=== PATIENT | female | born 1955 | race Caucasian/White ===

== ENCOUNTER 2019-07-10 12:25 | Outpatient (CLI) | payer MEDICARE, SELFPAY ==
--- NOTE | 2019-07-10 12:41 | XRR_ITS ---
PROCEDURE INFORMATION: Exam: XR Lumbosacral Spine, 2 or 3 Views Exam date and time: 07/10/2019 1:26 PM Age: 64 years old Clinical indication: Low back pain; Prior surgery; Additional info: Chronic low back pain TECHNIQUE: Imaging protocol: XR of the lumbosacral spine, 2 or 3 views. COMPARISON: CR Lumbar Spine Flex/Extens [id number] 11/02/2015 3:27 PM FINDINGS: Vertebrae: There are posterior fusion rods and pedicle screws at L3, L4 and L5. No evidence for hardware failure. There is postsurgical change at the L3/4 and L4/5 discs. There is disc space narrowing and osteophyte formation at L1/2 and L2/3 with vacuum disc phenomenon. There is a mild thoracolumbar spine scoliosis convex to the right. Soft tissues: Unremarkable XR/XR lumbar spine 2-3V* [id number] IMPRESSION: There are no acute concerning abnormalities. Postoperative change is identified in the lumbar spine. There is degenerative change at L1/2 and L2/3.
--- NOTE | 2019-07-10 12:42 | XRR_ITS ---
PROCEDURE INFORMATION: Exam: XR Left Hip with Pelvis when Performed Exam date and time: 07/10/2019 1:26 PM Age: 64 years old Clinical indication: Hip pain; Left hip; Additional info: Left hip pain TECHNIQUE: Imaging protocol: XR Left hip with pelvis when performed. Views: 2 or 3 views. COMPARISON: No relevant prior studies available. FINDINGS: Bones/joints: There has been a right hip replacement. No evidence for hardware failure. The left hip appears unremarkable. No significant joint space narrowing or fracture. Soft tissues: Unremarkable. XR/XR hip LT 2-3V wo/w pel* [id number] IMPRESSION: There are no acute concerning abnormalities.
--- NOTE | 2019-07-10 12:42 | XRR_ITS ---
PROCEDURE INFORMATION: Exam: XR Bilateral Sacroiliac Joints, 3 or More Views Exam date and time: 07/10/2019 1:26 PM Age: 64 years old Clinical indication: Pain; Other: Si joints, lt; Additional info: Lt sacroilitis TECHNIQUE: Imaging protocol: XR Bilateral XR of the sacroiliac joints, 3 or more views. COMPARISON: CR [facility] Hip RIGHT 2-3 views 03/11/2014 2:28 PM FINDINGS: Bones/joints: The sacroiliac joints appear intact. No acute fracture. There are posterior fusion rods and pedicle screws in the left L4 and L5 vertebral bodies and there has been a right hip replacement. Soft tissues: Normal. XR/XR sacroiliac [facility] m 3V [id number] IMPRESSION: No acute findings.
== END 2019-07-10 12:26 | disposition home or self-care (01) ==
LOC: RAD 12:29
PROVIDERS: PCP Family Medicine; Visit Provider Family Medicine
DX: M54.5 Low back pain (principal); M46.1 Sacroiliitis, not elsewhere classified; M25.552 Pain in left hip
CPT/HCPCS: 72100; 72202; 73502

== ENCOUNTER 2019-07-22 06:57 | Outpatient (CLI) | payer MEDICARE, SELFPAY ==
--- NOTE | 2019-07-22 07:05 | MR_ITS ---
WS: [id number] MRI LUMBAR SPINE NONCONTRAST HISTORY: LUMBAR RADICULOPATHY, LEFT COMPARISON: 11/02/2015 TECHNIQUE: Sagittal and axial multisequence imaging is submitted. Moderate curvature lumbar spine to the RIGHT. Prior LEFT lumbar fusion extending from L3 to L5 with i nterbody spacers at L3-4 and L4-5. Severe degenerative disc disease throughout the lumbar spine. 3 mm anterolisthesis of L3 and L4. No a cute fracture or marrow edema in the lumbar spine. There is a small amount of marrow edema in the adj acent endplates at T10 and T11 which may be reactive. Conus terminates normally at L1-2 disc level. L1-L2: Severe asymmetric disc bulging and osteophytic ridging. Moderate size LEFT paracentral disc os teophyte protrusion extends into the subarticular recess. Facet joint encroachment upon the LEFT late ral thecal sac. There is mild central stenosis with severe bilateral foraminal stenosis LEFT greater than RIGHT. No change. L2-L3: Diffuse osteophytic ridging and disc bulging. Marked ligamentum flavum hypertrophy and facet a rthritis. Complete effacement of fat in the LEFT foramen. There is mild central and RIGHT foraminal s tenosis and severe LEFT foraminal stenosis. No progression. L3-L4: Annular disc bulging and osteophytic ridging. Mild facet arthritis. Single LEFT pedicle screw. Previously described stenosis has been resolved by debridement of the facet joints and ligaments. L4-L5: Marked osteophytic ridging and annular disc bulge. Prior debridement of the facet joint and li gamentum flavum flavum. Mild encroachment upon the central thecal sac with no significant stenosis. M ild bilateral foraminal narrowing. L5-S1: Annular disc bulging with a central protrusion. There is very slight deformity upon the RIGHT lateral thecal sac and S1 nerve root. Moderate LEFT foraminal stenosis. Paravertebral soft tissues are normal. MR/MR lumbar spine wo con* [id number] IMPRESSION: 1. Prior posterior lumbar fusion with LEFT pedicle screws at L3, L4 and L5. 2. Debridement and postsurgical resolution of central stenosis at L3-4 and L4- 5. 3. Severe LEFT foraminal stenosis at L2-3 with mild central and RIGHT foramina l stenosis, unchanged. 4. Moderate LEFT paracentral disc osteophyte protrusion at L1-2 with extension into the subarticular recess. 5. Mild central and severe bilateral foraminal stenosis, greatest on the LEFT at L1-2. 6. Severe degenerative spondylitic changes and RIGHT convex scoliosis lumbar s pine.
== END 2019-07-22 06:58 | disposition home or self-care (01) ==
LOC: RADSHAW 06:59
PROVIDERS: PCP Family Medicine; Visit Provider Family Medicine
DX: M54.16 Radiculopathy, lumbar region (principal); M43.26 Fusion of spine, lumbar region; M48.061 Spinal stenosis, lumbar region without neurogenic claudication; M25.78 Osteophyte, vertebrae
CPT/HCPCS: 72148

== ENCOUNTER 2019-08-13 09:09 | Outpatient (RCR) | payer MEDICARE, SELFPAY | END 2019-08-18 23:59 | disposition home or self-care (01) | LOC: SPT 09:09 | PROVIDERS: PCP Family Medicine; Referring Provider Orthopaedic Surgery; Visit Provider Orthopaedic Surgery | DX: M17.11 Unilateral primary osteoarthritis, right knee (principal) | CPT/HCPCS: 97110; 97161 ==

== ENCOUNTER 2019-08-19 02:25 | Outpatient (RCR) | payer MEDICARE, SELFPAY | END 2019-09-18 23:59 | disposition home or self-care (01) | LOC: SPT 02:25 | PROVIDERS: PCP Family Medicine; Referring Provider Orthopaedic Surgery; Visit Provider Orthopaedic Surgery | DX: M17.11 Unilateral primary osteoarthritis, right knee (principal) | CPT/HCPCS: 97032; 97110 ==

== ENCOUNTER 2019-10-07 06:00 | Outpatient (RCR) | payer MEDICARE, SELFPAY | END 2019-10-19 23:59 | disposition home or self-care (01) | LOC: SPT 06:00 | PROVIDERS: PCP Family Medicine; Referring Provider Orthopaedic Surgery; Visit Provider Orthopaedic Surgery | DX: M54.16 Radiculopathy, lumbar region (principal) | CPT/HCPCS: 97161 ==

== ENCOUNTER 2019-10-07 09:42 | Outpatient (RCR) | payer MEDICARE, SELFPAY | END 2019-10-19 23:59 | disposition home or self-care (01) | LOC: SPT 09:42 | PROVIDERS: PCP Family Medicine; Referring Provider Family Medicine; Visit Provider Family Medicine | DX: M54.16 Radiculopathy, lumbar region (principal) | CPT/HCPCS: 97110; 99215 ==

== ENCOUNTER → 2019-10-08 13:35 | Outpatient (BNVA) | payer MEDICARE, SELFPAY | PROVIDERS: PCP Family Medicine; Referring Provider Dermatology; Visit Provider Dermatology | DX: B07.8 Other viral warts (principal); D18.01 Hemangioma of skin and subcutaneous tissue; L73.8 Other specified follicular disorders | CPT/HCPCS: 17110; 99203 ==

== ENCOUNTER → 2019-10-19 11:14 | Outpatient (BNVA) | payer MEDICARE, SELFPAY | PROVIDERS: PCP Family Medicine; Visit Provider Podiatrist Foot & Ankle Surgery | DX: M25.571 Pain in right ankle and joints of right foot (principal) | CPT/HCPCS: 73610 ==

== ENCOUNTER 2019-10-20 06:00 | Outpatient (RCR) | payer MEDICARE, SELFPAY | END 2019-11-18 23:59 | disposition home or self-care (01) | LOC: SPT 06:00 | PROVIDERS: PCP Family Medicine; Referring Provider Family Medicine; Visit Provider Family Medicine | DX: M54.16 Radiculopathy, lumbar region (principal) | CPT/HCPCS: 97110 ==

== ENCOUNTER 2019-10-21 08:00 | Outpatient (CLI) | payer MEDICARE, SELFPAY ==
--- NOTE | 2019-10-21 08:00 | MR_ITS ---
WS: [id number] MRI BRAIN WITH AND WITHOUT CONTRAST HISTORY: Multiple sclerosis. COMPARISON: 07/25/2017 TECHNIQUE: Multiplanar imaging performed through the brain with Prohance 17 ml's IV. No acute infarcts are seen. Cifuentes-white matter differentiation is well preserved. Several white matter lesions on the LEFT. The largest is ovoid with perpendicular orientation the corpus callosum measur ing 8 mm. There are additional LEFT pericallosal T2 and FLAIR signal hyperintensities which are stabl e. No new or progressing lesions. No susceptibility artifacts or prior lacunar infarcts. Ventricles and extra-axial spaces are normal. Clivus and pituitary gland are normal. Visualized posterior fossa and brainstem are also normal. Postcontrast images are negative for masses or vascular malformations. None of the demyelinating lesi ons enhance. Dural venous sinuses are normal. Paranasal sinuses: Well aerated with no significant disease. Mastoid air cells: Normal. Calvarium and scalp: Normal. MR/MR head wo/w con [id number] IMPRESSION: 1. Stable, nonenhancing LEFT pericallosal white matter lesions since 07/25/2017. No progression of demyelinating lesions or active demyelination. 2. No enhancing masses.
--- NOTE | 2019-10-21 08:00 | MR_ITS ---
WS: [id number] MRI CERVICAL SPINE with and without contrast. HISTORY: Multiple sclerosis. COMPARISON: 03/14/2009 Multiplanar, multisequence imaging performed of the cervical spine with and without contrast. Normal cervical alignment. Mild disc space narrowing and desiccation at C4-5 and C5-6. Smudgy area of increased T2 and FLAIR signal in the central cord at the C4-5 level extending over a l ength of 1.4 cm. There is no enhancement. Craniocervical junction, C1 and C2 relationship, odontoid process and soft tissues are normal. C2-C3: Normal. C3-C4: RIGHT foraminal osteophyte. C4-C5: Small bilateral foraminal osteophytes with mild narrowing of the LEFT foramen. C5-C6: Small central disc protrusion and osteophytic ridging without stenosis. C6-C7: Shallow RIGHT paracentral disc protrusion without stenosis. C7-T1: Small central disc protrusion has decreased in size since 2009. No stenosis. T2-T3: Annular disc bulging with small bilateral paracentral disc protrusions. No enhancing lesions are noted on the postcontrast sequences. No discitis or vertebral body osteomyel itis. No enhancing lesions within the cervical cord. MR/MR cervical spine wo/w [id number] IMPRESSION: 1. No active demyelination. 2. Stable demyelinating lesion in the cervical cord at C4-5. No additional les ions identified. 3. Disc protrusion at C7-T1 has significantly decreased in size.
== END 2019-10-21 08:01 | disposition home or self-care (01) ==
LOC: RADSHAW 08:02
PROVIDERS: PCP Family Medicine; Visit Provider Specialist
DX: G35 Multiple sclerosis (principal); M51.24 Other intervertebral disc displacement, thoracic region
CPT/HCPCS: 70553; 72156; A9579

== ENCOUNTER 2019-11-19 06:00 | Outpatient (RCR) | payer MEDICARE, SELFPAY | END 2019-12-19 23:59 | disposition home or self-care (01) | LOC: SPT 06:00 | PROVIDERS: PCP Family Medicine; Referring Provider Family Medicine; Visit Provider Family Medicine | DX: M54.16 Radiculopathy, lumbar region (principal) | CPT/HCPCS: 97110 ==

== ENCOUNTER → 2020-04-08 11:05 | Outpatient (BNVA) | payer MEDICARE, SELFPAY | PROVIDERS: PCP Family Medicine; Visit Provider Specialist | DX: G35 Multiple sclerosis (principal) | CPT/HCPCS: 99214 ==

== ENCOUNTER → 2020-07-19 13:17 | Outpatient (BNVA) | payer MEDICARE, SELFPAY | PROVIDERS: PCP Family Medicine; Visit Provider Podiatrist Foot & Ankle Surgery | DX: M25.571 Pain in right ankle and joints of right foot (principal); M79.673 Pain in unspecified foot; M76.821 Posterior tibial tendinitis, right leg; M21.70 Unequal limb length (acquired), unspecified site | CPT/HCPCS: 73630 ==

== ENCOUNTER → 2020-11-11 08:40 | Outpatient (BNVA) | payer MEDICARE, SELFPAY | PROVIDERS: PCP Family Medicine; Visit Provider Nurse Practitioner Family | DX: Z20.822 Contact with and (suspected) exposure to COVID-19 (principal) | CPT/HCPCS: 87426 ==

== ENCOUNTER → 2021-05-23 09:53 | Outpatient (BNVA) | payer MEDICARE, SELFPAY | PROVIDERS: PCP Family Medicine; Visit Provider Specialist | DX: G35 Multiple sclerosis (principal); G47.33 Obstructive sleep apnea (adult) (pediatric); M19.90 Unspecified osteoarthritis, unspecified site | CPT/HCPCS: 99214 ==

== ENCOUNTER → 2021-06-08 13:33 | Outpatient (BNVA) | payer MEDICARE, SELFPAY | PROVIDERS: PCP Family Medicine; Visit Provider Podiatrist Foot & Ankle Surgery | DX: M25.571 Pain in right ankle and joints of right foot (principal); M76.821 Posterior tibial tendinitis, right leg; M21.70 Unequal limb length (acquired), unspecified site | CPT/HCPCS: 99213; 99214 ==

== ENCOUNTER → 2021-06-22 10:48 | Outpatient (BNVA) | payer MEDICARE, SELFPAY | PROVIDERS: PCP Family Medicine; Visit Provider Family Medicine | DX: Z51.81 Encounter for therapeutic drug level monitoring (principal); R73.9 Hyperglycemia, unspecified; Z86.39 Personal history of other endocrine, nutritional and metabolic disease; R53.81 Other malaise; R53.83 Other fatigue | CPT/HCPCS: 80053; 83036; 84439; 84443; 85025 ==

== ENCOUNTER 2021-09-07 14:23 | Outpatient (CLI) | payer MEDICARE, SELFPAY ==
--- NOTE | 2021-09-07 | XRR_ITS ---
[facility] Final Radiology Report Call: [phone] assistance Online chat: [email or web address] Name: AFTAB CODY Age: 66Years F Date: 09/07/2021 SSN: -- : 1955 Study: XR SPINE LUMBOSACRAL 2 OR 3 VIEWS Requesting Physician: RONALD GUPTA Images: 3 Add?l Studies: Provided Clinical History: LUMBAR SPINAL STENOSIS PROCEDURE INFORMATION: Exam: XR Lumbosacral Spine Exam date and time: 09/07/2021 2:54 PM Age: 66 years old Clinical indication: Condition or disease; Stenosis, spinal; Lumbar region; Prior surgery; Additional info: Lumbar spinal stenosis TECHNIQUE: Imaging protocol: Radiologic exam of the lumbosacral spine. Views: 2 or 3 views. COMPARISON: MR lumbar spine wo con* [id number] 07/22/2019 7:34 AM FINDINGS: Bones/joints: Intact spinal fusion hardware involving the T12-L5 segment with intervertebral disc spacers. Degenerative disc disease at L5-S1. No acute fracture. Normal alignment. Partially visualized right hip arthroplasty noted. Soft tissues: Sequela of bilateral inguinal hernia repair. IMPRESSION: No acute findings. Thank you for allowing us to participate in the care of your patient. Dictated and Authenticated by: Hilton Hicks DO 09/07/2021 4:44 PM Central Time ([place] & [place]) KAYLA
--- NOTE | 2021-09-07 14:41 | XR_ITS ---
WS: [id number] XR hip RT 2-3V wo/w pel* [id number] REASON FOR EXAM: Right hip pain FINDINGS: Total right hip arthroplasty. Prosthetic components appear to be in proper position and alignment. No fracture or other bony abnormality is identified. The total right hip arthroplasty appears unchanged compared to a view of the pelvis 07/10/2019. XR/XR hip RT 2-3V wo/w pel* [id number] IMPRESSION: Stable right hip arthroplasty.
== END 2021-09-07 14:24 | disposition home or self-care (01) ==
LOC: RAD 14:28
PROVIDERS: PCP Family Medicine; Visit Provider Family Medicine
DX: M25.551 Pain in right hip (principal); M48.061 Spinal stenosis, lumbar region without neurogenic claudication; Z96.641 Presence of right artificial hip joint
CPT/HCPCS: 72100; 73502

== ENCOUNTER → 2021-10-18 13:09 | Outpatient (BNVA) | payer MEDICARE, SELFPAY | PROVIDERS: PCP Family Medicine; Visit Provider Podiatrist Foot & Ankle Surgery | DX: M76.821 Posterior tibial tendinitis, right leg (principal); M25.571 Pain in right ankle and joints of right foot | CPT/HCPCS: 99213 ==

== ENCOUNTER → 2021-10-20 10:57 | Outpatient (BNVA) | payer MEDICARE, SELFPAY | PROVIDERS: PCP Family Medicine; Visit Provider Family Medicine | DX: R30.0 Dysuria (principal) | CPT/HCPCS: 81000; 87077; 87086; 87184 ==

== ENCOUNTER 2021-11-21 13:59 | Outpatient (CLI) | payer MEDICARE, SELFPAY ==
--- NOTE | 2021-11-21 14:08 | XRR_ITS ---
PROCEDURE INFORMATION: Exam: XR Left Hip Exam date and time: 11/21/2021 2:09 PM Age: 66 years old Clinical indication: Injury or trauma; Fall; Blunt trauma (contusions or hematomas); Injury details: History--fell 2 weeks prior, injured low back and left hip, pain in left hip and lowback now; Prior surgery; Surgery type: Surgery--right hip replacement, l1-5 fused; Additional info: Left hip pain TECHNIQUE: Imaging protocol: Radiologic exam of the Left hip. Views: 2 or 3 views hip with pelvis when performed. COMPARISON: CR XR hip LT 2-3V wo/w pel* [id number] 07/10/2019 12:58 PM FINDINGS: Bones/joints: Mild chronic productive changes at the ischial and greater trochanteric regions. No acute fracture dislocation. Well preserved hip joint space on this nonweightbearing exam. Mild see tabular spurring consistent with early degenerative disease. Soft tissues: Unremarkable. Other findings: Two views submitted. XR/XR hip LT 2-3V wo/w pel* [id number] IMPRESSION: No acute findings.
--- NOTE | 2021-11-21 14:08 | XRR_ITS ---
PROCEDURE INFORMATION: Exam: XR Lumbosacral Spine Exam date and time: 11/21/2021 2:09 PM Age: 66 years old Clinical indication: Injury or trauma; Fall; Blunt trauma (contusions or hematomas); Injury details: History--fell 2 weeks prior, injured low back and left hip, pain in left hip and lowback now; Prior surgery; Surgery type: Surgery--right hip replacement, l1-5 fused; Additional info: Low back pain TECHNIQUE: Imaging protocol: Radiologic exam of the lumbosacral spine. Views: 2 or 3 views. COMPARISON: CR XR lumbar spine 2-3V* [id number] 09/07/2021 2:54 PM FINDINGS: Bones/joints: Posterior surgical fusion hardware from T12 through L5 with multilevel intervertebral disc spacers, in good alignment. Multilevel endplate osteophytes are again noted, most prominent at T9-10. Probable mild osteopenia. Facet sclerosis at L5-S1. No acute fracture or subluxation otherwise. Soft tissues: Unremarkable. Vasculature: Diffuse aortoiliac calcification. Other findings: Four views submitted. XR/XR lumbar spine 2-3V* [id number] IMPRESSION: No acute findings.
== END 2021-11-21 14:00 | disposition home or self-care (01) ==
LOC: RAD 14:02
PROVIDERS: PCP Family Medicine; Visit Provider Family Medicine
DX: M25.552 Pain in left hip (principal); M54.50 Low back pain, unspecified
CPT/HCPCS: 72100; 73502

== ENCOUNTER → 2022-03-28 13:08 | Outpatient (BNVA) | payer MEDICARE, SELFPAY | PROVIDERS: PCP Family Medicine; Visit Provider Podiatrist Foot & Ankle Surgery | DX: M25.571 Pain in right ankle and joints of right foot (principal); M76.821 Posterior tibial tendinitis, right leg | CPT/HCPCS: 99213 ==

== ENCOUNTER 2022-04-10 14:05 | Outpatient (CLI) | payer MEDICARE, SELFPAY ==
--- NOTE | 2022-04-10 | XR_ITS ---
Exam: XR lumbar spine 2-3V* [id number] Date/Time of Exam: 04/10/2022 2:23 PM Reason For Exam: FUSION OF LUMBOSACRAL SPINE, PAIN Comparison 11/21/2021. Posterior interbody fusion from T12 to L5 with pedicle screws and posterior rods. Disc spacers at L1-2, L2-3, L3-4 and L4-5. Degenerative thinning of the L5-S1 disc. The fusion remains in satisfactory alignment. Mild degenerative anterolisthesis of L4 on L5 and L3 on L4. Mild dextroscoliosis. IMPRESSION: 1. Stable-appearing posterior fusion without change or complication since the last exam. MTDD
--- NOTE | 2022-04-10 14:19 | XR_ITS ---
WS: [id number] Exam: XR lumbar spine 2-3V* [id number] Date/Time of Exam: 04/10/2022 2:23 PM Reason For Exam: FUSION OF LUMBOSACRAL SPINE, PAIN Comparison 11/21/2021. Posterior interbody fusion from T12 to L5 with pedicle screws and posterior rods. Disc spacers at L1- 2, L2-3, L3-4 and L4-5. Degenerative thinning of the L5-S1 disc. The fusion remains in satisfactory a lignment. Mild degenerative anterolisthesis of L4 on L5 and L3 on L4. Mild dextroscoliosis.
== END 2022-04-10 14:06 | disposition home or self-care (01) ==
LOC: RAD 14:09
PROVIDERS: PCP Family Medicine; Visit Provider Orthopaedic Surgery Orthopaedic Surgery of the Spine
DX: Z98.1 Arthrodesis status (principal)
CPT/HCPCS: 72100

== ENCOUNTER → 2022-04-20 11:24 | Outpatient (BNVA) | payer MEDICARE, SELFPAY | PROVIDERS: PCP Family Medicine; Visit Provider Family Medicine | DX: R07.9 Chest pain, unspecified (principal); Z51.81 Encounter for therapeutic drug level monitoring; R73.09 Other abnormal glucose; Z13.220 Encounter for screening for lipoid disorders; I10 Essential (primary) hypertension | CPT/HCPCS: 80053; 80061; 83036; 85025 ==

== ENCOUNTER → 2022-05-10 09:34 | Outpatient (BNVA) | payer MEDICARE, SELFPAY | PROVIDERS: PCP Family Medicine; Visit Provider Obstetrics & Gynecology | DX: N95.2 Postmenopausal atrophic vaginitis (principal); N95.0 Postmenopausal bleeding | CPT/HCPCS: 87624 ==

== ENCOUNTER → 2022-05-23 08:49 | Outpatient (BNVA) | payer MEDICARE, SELFPAY | PROVIDERS: PCP Family Medicine; Visit Provider Specialist | DX: G35 Multiple sclerosis (principal); D72.810 Lymphocytopenia | CPT/HCPCS: 99213 ==

== ENCOUNTER → 2022-05-24 09:05 | Outpatient (BNVA) | payer MEDICARE, SELFPAY | PROVIDERS: PCP Family Medicine; Visit Provider Podiatrist Foot & Ankle Surgery | DX: L60.8 Other nail disorders (principal); M76.821 Posterior tibial tendinitis, right leg; G35 Multiple sclerosis; L60.3 Nail dystrophy; I73.9 Peripheral vascular disease, unspecified | CPT/HCPCS: 11721 ==

== ENCOUNTER 2022-06-11 07:47 | Outpatient (CLI) | payer MEDICARE, SELFPAY ==
[2022-06-11 08:05] VITALS: BMI 42.0
--- NOTE | 2022-06-11 08:08 | NMCV_ITS ---
NM sarbjit perf SPECT r/s* [id number] Claudia Gunn Age: 67 Gender: F : 1955 Exam Date: 06/11/2022 09:22 Ordering Phys: Renan Clarke MD Technologist: AD Elkins Exam Location: [facility] Indications: CHEST PAIN STRESS TEST Please see separate stress test report in [facility] for full findings IMAGE PROTOCOL Rest/Stress 1 Lexiscan Day Radiopharmaceutical Dose (mCi) Administration Site Administered by Rest: Tc-99m 10.9 IV AD Phipps Sestamibi Stress:Tc-99m 32.4 IV AD Phipps Sestamibi Rest: 11-Jun-2022 60 Discovery 630 Stress: 11-Jun-2022 30 Discovery 630 0.4mg Lexiscan. Supine position only as patient was unable to lay prone. SPECT RESULTS Technical Quality: Good Raw Data Analysis: Breast attenuation Image Corrections: No attenuation or motion correction applied Summed Stress Score: 4 Summed Rest Score: 2 Summed Difference Score: 2 PERFUSION FINDINGS Small to moderate area of minimal to moderately decreased tracer uptake was noted in the mid and apical anterior and mid anterolateral segments. Subtle area of reversibility was noted in the apical anterior region. FUNCTIONAL RESULTS (calculated via Gated SPECT) Stress Image LV EF (%): 78 Stress EDV (mL):86 TID: 1.13 Stress ESV (mL):19 FUNCTIONAL FINDINGS: Segmental wall motion analysis revealing no gross wall motion abnormalities IMPRESSIONS 1. Myocardial perfusion imaging revealing small to moderate area of minimal to moderately decreased tracer uptake in the anterior and anterolateral regions with subtle area of reversibility suggesting myocardial scarring in the distribution of the left anterior descending artery with subtle area of ischemia. The reliability of this finding is questionable in view of some inconsistencies. 2. Normal LV ejection fraction of 78% 3. LV wall motion analysis revealing no gross wall motion abnormalities. 4. Normal LV volume. Clinical correlation is recommended Dr Rosie Spencer MD FACC (Electronically Signed) Final Date: 11 June 2022 16:53 S
--- NOTE | 2022-06-11 08:08 | ECG_ITS ---
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 Interpretive Statements NAME OF STUDY: LEXISCAN SESTAMIBI STRESS TEST INDICATION: Chest Pain RESULTS TO RONALD GUPTA MD PROCEDURE: At the baseline, the EKG revealed normal sinus rhythm with a normal ST Ts.. The baseline heart was 60 bpm with a blood pressue of 145/69 mm of Hg Lexiscan was infused over a period of 20 seconds. A total of 0.4 milligrams of Lexiscan was infused. The stress phase was continued for a total of 5 minutes. Heart rate at the end of the stress phase was 71 bpm with a blood pressure 136/61 mm of Hg. The EKG at the peak infusion revealed no significant changes. Sestamibi was injected 20 seconds after the Lexiscan infusion. Heart rate at the end of the recovery phase was 63 bpm with a blood pressure of 136/65 mm of Hg. CONCLUSION: 1. No significant EKG changes with the LexiScan infusion 2. No LexiScan induced chest pain or cardiac arrhythmia 3. Normal blood pressure and heart rate response 4. Sestamibi/sestamibi perfusion scan pending; see separate report. Electronically Signed On 06-16-2022 19:31:05 CDT by Rosie Spencer M.D. [email or web address]
[2022-06-11] MEDS: regadenoson 0.4 Mg/5 ml Syringe IVP (09:59)
[2022-06-11 10:11] VITALS: BP 136/63; PULSE 63
== END 2022-06-11 07:48 | disposition home or self-care (01) ==
PROVIDERS: PCP Family Medicine; Visit Provider Family Medicine
DX: R07.9 Chest pain, unspecified (principal)
CPT/HCPCS: 36415; 78452; 93017; 96374; A9500; J2785

== ENCOUNTER → 2022-06-19 13:24 | Outpatient (BNVA) | payer MEDICARE, SELFPAY | PROVIDERS: PCP Family Medicine; Visit Provider Obstetrics & Gynecology | DX: N95.0 Postmenopausal bleeding (principal); N95.2 Postmenopausal atrophic vaginitis | CPT/HCPCS: 76830 ==

== ENCOUNTER 2022-07-06 11:15 | Outpatient (CLI) | payer MEDICARE, SELFPAY ==
--- NOTE | 2022-07-06 11:28 | XR_ITS ---
WS: [id number] Right knee, 3 views, 07/06/2022 Clinical Data: right knee pain and bruising after a fall Comparison: Right knee, 09/17/2011 Findings: The right knee arthroplasty components are in good position. No periprosthetic fractures or loosening is seen. The soft tissues are normal. XR/XR knee RT 3V* [id number] Impression: Right knee arthroplasty
== END 2022-07-06 11:16 | disposition home or self-care (01) ==
LOC: RAD 11:18
PROVIDERS: PCP Family Medicine; Visit Provider Clinical Nurse Specialist Adult Health
DX: M25.561 Pain in right knee (principal); Z96.651 Presence of right artificial knee joint
CPT/HCPCS: 73562

== ENCOUNTER → 2022-07-23 15:52 | Outpatient (BNVA) | payer MEDICARE, SELFPAY | PROVIDERS: PCP Family Medicine; Visit Provider Family Medicine | DX: R19.7 Diarrhea, unspecified (principal) | CPT/HCPCS: 83630; 87506 ==

== ENCOUNTER → 2022-07-24 08:31 | Outpatient (BNVA) | payer MEDICARE, SELFPAY | PROVIDERS: PCP Family Medicine; Visit Provider Podiatrist Foot & Ankle Surgery | DX: M76.821 Posterior tibial tendinitis, right leg (principal); G35 Multiple sclerosis; L60.3 Nail dystrophy; I73.9 Peripheral vascular disease, unspecified; M21.371 Foot drop, right foot; S99.921A Unspecified injury of right foot, initial encounter; W19.XXXA Unspecified fall, initial encounter; Y92.009 Unspecified place in unspecified non-institutional (private) residence as the place of occurrence of the external cause | CPT/HCPCS: 11721; 99214 ==

== ENCOUNTER → 2022-08-02 16:16 | Outpatient (BNVA) | payer MEDICARE, SELFPAY | PROVIDERS: PCP Family Medicine; Visit Provider Family Medicine | DX: R19.7 Diarrhea, unspecified (principal) | CPT/HCPCS: 87177; 87209; 87493 ==

== ENCOUNTER 2022-09-12 08:57 | Outpatient (CLI) | payer MEDICARE, SELFPAY ==
--- NOTE | 2022-09-12 09:15 | US_ITS ---
WS: [id number] RIGHT UPPER QUADRANT ULTRASOUND HISTORY: RUQ pain COMPARISON: 04/11/2009 Liver: 16.0 cm in length. Normal size liver and echogenicity. No bile duct dilatation or mass. Portal Vein: Normal hepatopetal flow with monophasic waveform. Gallbladder: Normally distended gallbladder. There is a stone within the neck of the gallbladder with shadowing. Cholelithiasis was previously described also. No wall thickening or pericholecystic fluid . This is a large stone measuring 3.5 x 0.8 x 3.5 cm. CBD: 0.6 cm Pancreas: Poorly visualized due to body habitus. Right kidney: 11.6 cm in length. Normal size and echogenicity. No hydronephrosis or mass. Aorta and IVC: Unremarkable abdominal aorta and IVC. No ascites. US/US gall bladder [id number] IMPRESSION: 1. Cholelithiasis without evidence for acute cholecystitis. Stone within the g allbladder is large with a maximum diameter of 3.5 cm. 2. No bile duct dilatation.
== END 2022-09-12 08:58 | disposition home or self-care (01) ==
LOC: RAD 09:02
PROVIDERS: PCP Family Medicine; Visit Provider Family Medicine
DX: K80.20 Calculus of gallbladder without cholecystitis without obstruction (principal); R10.11 Right upper quadrant pain
CPT/HCPCS: 76705

== ENCOUNTER 2022-09-19 16:02 | Emergency (ER) | payer MEDICARE, SELFPAY ==
[2022-09-19 16:07] VITALS: BP 148/71; PULSE 71; RESP 16; TEMP 36.6; O2SAT 100
--- NOTE | 2022-09-19 17:49 | ECG_ITS ---
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 Measurements Intervals Slaughters Rate: 67 P: 53 PA: 152 QRS: 45 QRSD: 90 T: 39 QT: 378 QTc: 401 Interpretive Statements SINUS RHYTHM POSSIBLE LEFT ATRIAL ENLARGEMENT [-0.1mV P-WAVE IN V1/V2] No previous ECG available for comparison Electronically Signed On 09-19-2022 23:26:43 CDT by Rosie Spencer M.D. [id number] f
--- NOTE | 2022-09-19 17:49 | XRR_ITS ---
PROCEDURE INFORMATION: Exam: XR Chest Exam date and time: 09/19/2022 5:59 PM Age: 67 years old Clinical indication: Pain; Chest pressure; Additional info: Cp TECHNIQUE: Imaging protocol: Radiologic exam of the chest. Views: 1 view. COMPARISON: MR cervical spine wo/w [id number] 10/21/2019 8:35 AM FINDINGS: Lungs: There is a probable small granuloma in the left base. No consolidation. Pleural spaces: Unremarkable. No pleural effusion. No pneumothorax. Heart/Mediastinum: Unremarkable. No cardiomegaly. Bones/joints: There is partially visualized lower thoracic/lumbar hardware. No acute findings. XR/XR chest 1V portable [id number] IMPRESSION: No acute findings.
[2022-09-19 18:32] LABS: Basophils % 0.6 %; Eosinophils # 0.1 10^3/uL (0.0-0.8); Eosinophils % 1.8 %; Hematocrit 43.1 % (37.0-47.0); Hemoglobin 13.4 g/dL (11.5-15.3); Lymphocytes # 0.8 10^3/uL (0.8-4.8); Lymphocytes % 13.8 %; Mean Corpuscular HGB Conc 31.1 g/dL (30.0-36.0); Mean Corpuscular Hemoglobin 29.8 pg (28.0-34.0); Mean Platelet Volume 10.2 fL (7.4-10.4); Monocytes # 0.5 10^3/uL (0.2-0.9); Monocytes % 8.3 %; Neutrophils # 4.09 10^3/uL (1.8-7.7); Neutrophils % 75.1 %; Nucleated Red Blood Cells % 0 %; Platelet Count 225 10^3/cmm (130-400); Red Blood Count 4.49 10^6/uL (4.1-5.3); Red Cell Distribution Width 13.4 % (12.1-15.1); White Blood Count 5.4 10^3/uL (4.0-10.0)
[2022-09-19 19:02] LABS: Alanine Aminotransferase 20 U/L (0-33); Albumin Level 4.2 g/dL (3.5-5.2); Alkaline Phosphatase 87 U/L (35-105); Aspartate Amino Transferase 19 U/L (0-32); Blood Urea Nitrogen 15 mg/dL (8-23); Calcium 9.4 mg/dL (8.5-10.5); Carbon Dioxide 23 mmol/L (22-29); Chloride 102 mmol/L (98-107); Globulin 2.4 g/dL (1.3-4.6); Glomerular Filtration Rate 159.7 mL/min (90-130); Glucose 90 mg/dL (65-115); Lipase 29 U/L (13-60); Osmolality Calculated 286 mOsm/kg (285-295); Sodium 138 mmol/L (136-145); Total Bilirubin 0.4 mg/dL (0.15-1.2); Total Protein 6.6 g/dL (6.6-8.7)
[2022-09-19 19:10] LABS: Anion Gap 17.6 (5-19); Potassium 4.6 mmol/L (3.5-5.1)
[2022-09-19 20:08] LABS: Troponin(5th) Baseline 7 ng/L (0-10)
[2022-09-19 21:18] VITALS: RESP 14; O2SAT 99
[2022-09-19] MEDS: ondansetron 2 mg/ML SDV 2 mL 4 MG IM (21:18)
[2022-09-19] MEDS: morphine 4 mg/mL SDV 1 mL IM (21:18)
--- NOTE | 2022-09-19 21:18 | W.ED.CHESTPA ---
HPI - Chest Pain General: Chief Complaint: Chest Pain Stated Complaint: chest & back pain Time Seen by Provider: 09/19/22 20:55 Source: patient Mode of arrival: ambulatory Limitations: no limitations History of Present Illness: 67-year-old female states she has been having chest pain over the last 7 months. States she had a stress test back in May showed some possible abnormality she is close follow-up with cardiology states she sees cardiology and 2 weeks. She states she has been having some abdominal pain to in her PCP got an ultrasound last week that shows a gallstone. She states that over the last 3 days she has been having worsening sharp left-sided chest pain states pain is currently 5 out of 10 she denies any shortness of breath has had some diarrhea denies any fever denies any vomiting Associated symptoms: Reports abdominal pain; Deny dyspnea, fever(s), nausea or vomiting Review of Systems Const: Denies: fever(s), chills, body aches or change in appetite ENMT: Denies: throat pain or dental pain Card: Reports: chest pain Resp: Denies: dyspnea GI: Reports: abdominal pain and diarrhea; Denies: nausea or vomiting : Denies: dysuria Musc: Denies: neck pain or back pain Skin/Breast: Denies: rash Neuro: Denies: headache(s) Psych: Denies: depression Venkatesh/Lymph: Denies: easy bruising All/Imm: Denies: urticaria PFSH ED PFSH: Medical History DDD (degenerative disc disease) Diarrhea Essential hypertension Multiple sclerosis Right knee pain Torn tendon right arch 2004 Surgical History H/O arthroscopy of left knee H/O arthroscopy of left knee H/O bilateral hip replacements H/O section H/O: hysterectomy History of back surgery History of lumbar fusion Hx of total knee arthroplasty Family History Unknown Cancer Sister; ovarian cancer paternal aunt; breast cancer x3 great-paternal aunts; breast cancer Stroke paternal grandmother; stroke x2 maternal aunts; aneurysms resulting in Other CAD (coronary artery disease) Hypertension Denies family history of Diabetes Social History Smoking and tobacco status: never smoked Alcohol intake: current Alcohol intake frequency: holidays/special occasions only Physical Exam Const: COMMON NORMALS: no acute distress, patient oriented x3 and healthy appearing HENMT: COMMON NORMALS: normocephalic and atraumatic HEAD & SCALP: normocephalic and atraumatic Eye: COMMON NORMALS: Equal, round and reactive pupils present and EOMs intact bilaterally PUPIL: Yes Equal, round and reactive pupils present Neck/C-Spine: COMMON NORMALS: full ROM and supple Chest: COMMONS NORMALS: normal inspection of the chest and normal palpation of entire chest wall Resp: COMMON NORMALS: normal respiratory effort, No retractions, No use of accessory muscles and clear to auscultation bilaterally AUSCULTATION: clear to auscultation bilaterally Cardio: COMMON NORMALS: regular rate, regular rhythm and No murmurs present (Cardio) RATE: regular rate RHYTHM: regular rhythm GI: COMMON NORMALS: Normal to inspection, nondistended, normoactive bowel sounds present, Soft to palpation, non-tender and no masses PALPATION: Yes Soft to palpation Extremity: COMMON NORMALS: normal to inspection and full ROM Neuro: COMMON NORMALS: patient oriented x3, moves all extremities and no focal motor deficits Psych: COMMON NORMALS: mental status grossly normal, Normal thought process present and cooperative THOUGHT PROCESS: Normal thought process present Skin: COMMON NORMALS: no rashes or lesions noted and no wounds GENERAL SKIN EXAM: no rashes or lesions noted Course Vital Signs: Vital signs: Vital Signs Temperature 97.9 F 09/19/22 16:07 Pulse Rate 60 09/19/22 21:21 Respiratory Rate 19 H 09/19/22 21:21 Blood Pressure 156/69 09/19/22 21:21 Pulse Oximetry 100 09/19/22 21:21 Oxygen Delivery Me thod Room Air 09/19/22 16:07 MDM - Chest Pain Medical Decision Making Patient presents here with chest and abdominal pain troponins blood work here is all normal pains improved here we will place her on pain meds she has follow-up with surgery and cardiology in place she is to follow-up as scheduled return if worsening she has no signs of acute coronary syndrome no signs of dissection or pulm embolism no signs of cholecystitis. Medical Records I reviewed the patient's medical records. Lab Data I reviewed the patient's lab results. 09/19/22 18:08 09/19/22 18:08 Radiology Impressions Chest X-Ray 09/19/22 17:49 IMPRESSION: No acute findings. Laboratory Results WBC 5.4 10^3/uL (4.0-10.0) 09/19/22 18:08 RBC 4.49 10^6/uL (4.1-5.3) 09/19/22 18:08 Hgb 13.4 g/dL (11.5-15.3) 09/19/22 18:08 Hct 43.1 % (37.0-47.0) 09/19/22 18:08 MCV 96.0 fl (81-99) 09/19/22 18:08 MCH 29.8 pg (28.0-34.0) 09/19/22 18:08 MCHC 31.1 g/dL (30.0-36.0) 09/19/22 18:08 RDW 13.4 % (12.1-15.1) 09/19/22 18:08 Plt Count 225 10^3/cmm (130-400) 09/19/22 18:08 MPV 10.2 fL (7.4-10.4) 09/19/22 18:08 Neut % (Auto) 75.1 % 09/19/22 18:08 Lymph % (Auto) 13.8 % 09/19/22 18:08 [place] % (Auto) 8.3 % 09/19/22 18:08 Eos % (Auto) 1.8 % 09/19/22 18:08 Baso % (Auto) 0.6 % 09/19/22 18:08 Neut # (Auto) 4.09 10^3/uL (1.8-7.7) 09/19/22 18:08 Lymph # (Auto) 0.8 10^3/uL (0.8-4.8) 09/19/22 18:08 [place] # (Auto) 0.5 10^3/uL (0.2-0.9) 09/19/22 18:08 Eos # (Auto) 0.1 10^3/uL (0.0-0.8) 09/19/22 18:08 Baso # (Auto) 0.0 10^3/uL (0.0-0.1) 09/19/22 18:08 Nucleated RBC % (auto) 0 % 09/19/22 18:08 Nucleated RBCs # 0.0 /100WBC 09/19/22 18:08 Sodium 138 mmol/L (136-145) 09/19/22 18:08 Potassium 4.6 mmol/L (3.5-5.1) 09/19/22 18:08 Chloride 102 mmol/L (98-107) 09/19/22 18:08 Carbon Dioxide 23 mmol/L (22-29) 09/19/22 18:08 Anion Gap 17.6 (5-19) 09/19/22 18:08 BUN 15 mg/dL (8-23) 09/19/22 18:08 Creatinine 0.4 mg/dL (0.5-0.9) L 09/19/22 18:08 GFR Calculation 159.7 mL/min (90-130) H 09/19/22 18:08 Glucose 90 mg/dL (65-115) 09/19/22 18:08 Calculated Osmolality 286 mOsm/kg (285-295) 09/19/22 18:08 Calcium 9.4 mg/dL (8.5-10.5) 09/19/22 18:08 Total Bilirubin 0.4 mg/dL (0.15-1.2) 09/19/22 18:08 AST 19 U/L (0-32) 09/19/22 18:08 ALT 20 U/L (0-33) 09/19/22 18:08 Alkaline Phosphatase 87 U/L (35-105) 09/19/22 18:08 Troponin T Baseline 7 ng/L (0-10) 09/19/22 18:08 Troponin T 120 Minute 7.82 ng/L (0-10) 09/19/22 20:38 Delta Troponin T 0.82 ABS# (0-10) 09/19/22 20:38 Total Protein 6.6 g/dL (6.6-8.7) 09/19/22 18:08 Albumin 4.2 g/dL (3.5-5.2) 09/19/22 18:08 Globulin 2.4 g/dL (1.3-4.6) 09/19/22 18:08 Lipase 29 U/L (13-60) 09/19/22 18:08 Urine Color Yellow (Yellow) 09/19/22 17:00 Urine Appearance Hazy (CLEAR) A 09/19/22 17:00 Urine pH 5 (5-7) 09/19/22 17:00 Ur Specific [place] 1.025 (1.005-1.030) 09/19/22 17:00 Urine Protein Neg (Negative) 09/19/22 17:00 Urine Glucose (UA) Norm (Normal) 09/19/22 17:00 Urine Ketones Negative (Negative) 09/19/22 17:00 Urine Blood Neg (Negative) 09/19/22 17:00 Urine Nitrate Negative (Negative) 09/19/22 17:00 Urine Bilirubin Neg (Negative) 09/19/22 17:00 Urine Urobilinogen Norm mg/dL (Negative) 09/19/22 17:00 Ur Leukocyte Esterase Negative (Negative) 09/19/22 17:00 Discharge Plan Discharge Patient Disposition: Home Clinical Impression: Chest pain, Abdominal pain Condition: Stable Prescriptions: New hydrocodone-acetaminophen 5-325 mg tablet 1 tab PO Q6H PRN (Reason: pain) Qty: 14 0RF ondansetron 4 mg tablet,disintegrating 4 mg PO Q6H PRN (Reason: nausea and vomiting) Qty: 14 0RF No Action ibuprofen [IBU] 800 mg tablet 800 mg PO TID cholecalciferol (vitamin D3) 625 mcg (25,000 unit) capsule PO mecobalamin (vitamin B12) 1,000 mcg tablet,chewable 1,000 mcg PO DAILY (DME) SMO to the right with orthopedic shoes See Rx Instructions .Route .MEDSUPPLY Qty: 1 0RF Rx Instructions: As directed [facility] [employer] [facility] [place] 0.01 % drops 1 drp ophthalmic (eye) DAILY albuterol sulfate 90 mcg/actuation HFA aerosol inhaler 2 puff inhalation potassium chloride 10 mEq tablet extended release 10 meq PO dimethyl fumarate [Tecfidera] 240 mg capsule,delayed release(DR/EC) See Rx Instructions .ROUTE .COMPLEX Qty: 60 3RF Dose Instruction: TAKE 1 CAPSULE (240MG) BY MOUTH TWICE DAILY Rx Instructions: TAKE 1 CAPSULE (240MG) BY MOUTH TWICE DAILY fluticasone propionate 50 mcg/actuation spray,suspension 2 spray intranasal BID Qty: 16 2RF Rx Instructions: administer into each nostril (DME) Moncada Balance Brace See Rx Instructions .Route .MEDSUPPLY Qty: 1 0RF Rx Instructions: As directed conjugated estrogens 0.625 mg/gram cream 0.625 mg vaginal .twice weekly Qty: 30 6RF Rx Instructions: see above clotrimazole-betamethasone 1-0.05 % cream 1 applic topical DAILY Qty: 45 6RF hydrocodone-acetaminophen 7.5-325 mg tablet 1 tab PO Q8H PRN (Reason: pain) 30 Days Qty: 60 0RF lisinopril 20 mg tablet See Rx Instructions .ROUTE .COMPLEX Qty: 90 3RF Dose Instruction: TAKE 1 TABLET BY MOUTH EVERY DAY Rx Instructions: TAKE 1 TABLET BY MOUTH EVERY DAY rosuvastatin 40 mg tablet See Rx Instructions .ROUTE .COMPLEX Qty: 90 3RF Dose Instruction: TAKE 1 TABLET BY MOUTH EVERY DAY AT NIGHT Rx Instructions: TAKE 1 TABLET BY MOUTH EVERY DAY AT NIGHT levocetirizine 5 mg tablet See Rx Instructions .ROUTE .COMPLEX Qty: 90 2RF Dose Instruction: TAKE 1 TABLET BY MOUTH EVERY DAY Rx Instructions: TAKE 1 TABLET BY MOUTH EVERY DAY furosemide 40 mg tablet See Rx Instructions .ROUTE .COMPLEX Qty: 30 6RF Dose Instruction: TAKE 1 TABLET BY MOUTH EVERY DAY NEEDED Rx Instructions: TAKE 1 TABLET BY MOUTH EVERY DAY NEEDED Discharge Orders: Discharge ED (Routine); Ordered 09/19/22 Ordered By: Chilo Ochoa Referrals: Renan Clarke MD [Primary Care Provider] - 1-3 days Discharge Diet: Advance as tolerated Discharge Activity: Resume usual activity Patient Instructions: Chest Pain (ED), Abdominal Pain (ED), Opioid Safety Coding Level of Care Code ED 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
[2022-09-19 21:21] VITALS: BP 156/69; PULSE 60; RESP 19; O2SAT 100
[2022-09-19 21:21] LABS: Add Urine Microscopic? NO; Charge for UA Resulting for Rev
[2022-09-19 21:27] LABS: Bilirubin Urine Neg (Negative); Blood Urine Neg (Negative); Glucose Urine UA Norm (Normal); Ketones Urine Negative (Negative); Leukocyte Esterase Urine Negative (Negative); Nitrate Urine Negative (Negative); Protein Urine Neg (Negative); Specific Gravity, Urine 1.025 (1.005-1.030); Urine Appearance Hazy (CLEAR); Urine Color Yellow (Yellow); Urobilinogen Urine Norm (Negative); pH Urine 5 (5-7)
[2022-09-19 21:31] LABS: Troponin 5 2HR 7.82 ng/L (0-10)
[2022-09-19 21:40] LABS: Troponin 5 2HR Delta 0.82 ABS# (0-10)
[2022-09-19 22:00] VITALS: BP 136/50; PULSE 63; RESP 16; O2SAT 93
--- NOTE | 2022-09-19 23:49 | ECG_ITS ---
[facility] Test Date: 2022-09-19 Pat Name: Claudia Gunn Department: Room: Gender: Female Shared Services Representative: : [id number] Requested By: Chilo Ochoa Order Number: [id number] Yanely MD: Rosie Spencer M.D. Measurements Intervals [place] Rate: 55 P: 64 W[place]: 164 QRS: 56 QRSD: 87 T: 44 QT: 416 QTc: 401 Interpretive Statements SINUS BRADYCARDIA Compared to ECG 09/19/2022 16:18:48 Sinus rhythm no longer present Electronically Signed On 09-19-2022 23:38:18 CDT by Rosie Spencer M.D. [email or web address] - [id number]
== END 2022-09-19 22:01 | disposition home or self-care (01) ==
PROVIDERS: Physician Assistant; Emergency Provider Emergency Medicine; PCP Family Medicine
DX: R07.9 Chest pain, unspecified (principal); R10.9 Unspecified abdominal pain; I10 Essential (primary) hypertension; Z79.899 Other long term (current) drug therapy
CPT/HCPCS: 36415; 71045; 80053; 81003; 83690; 84484; 85025; 93005; 96372; 99285; J2270; J2405

== ENCOUNTER → 2022-09-25 11:27 | Outpatient (BNVA) | payer MEDICARE, SELFPAY | PROVIDERS: PCP Family Medicine; Visit Provider Internal Medicine Cardiovascular Disease | DX: R94.39 Abnormal result of other cardiovascular function study (principal); R07.9 Chest pain, unspecified; G47.33 Obstructive sleep apnea (adult) (pediatric); I10 Essential (primary) hypertension | CPT/HCPCS: 99204 ==

== ENCOUNTER → 2022-09-26 10:27 | Outpatient (BNVA) | payer MEDICARE, SELFPAY | PROVIDERS: PCP Family Medicine; Visit Provider Podiatrist Foot & Ankle Surgery | DX: G35 Multiple sclerosis; L60.3 Nail dystrophy; I73.9 Peripheral vascular disease, unspecified; M21.371 Foot drop, right foot; M76.821 Posterior tibial tendinitis, right leg | CPT/HCPCS: 11721 ==

== ENCOUNTER → 2022-10-01 09:49 | Outpatient (BNVA) | payer MEDICARE, SELFPAY | PROVIDERS: PCP Family Medicine; Visit Provider Surgery | DX: K80.20 Calculus of gallbladder without cholecystitis without obstruction (principal); E66.9 Obesity, unspecified | CPT/HCPCS: 73070; 99204 ==

== ENCOUNTER 2022-10-10 10:04 | Outpatient (CLI) | payer MEDICARE, SELFPAY ==
--- NOTE | 2022-10-10 10:15 | MR_ITS ---
WS: [id number] MRCP (MAGNETIC RESONANCE CHOLANGIOPANCREATOGRAPHY) HISTORY: large gallstone-neck gallbladder COMPARISON: Gallbladder ultrasound 09/12/2022. TECHNIQUE: Multiple sequences are performed to evaluate the intra and extrahepatic ducts. Mild diffuse hepatic steatosis throughout the liver. No mass or bile duct dilatation. Gallbladder is normally distended. Cholelithiasis is noted. There is a large stone within the gallbladder lumen towa rds the neck measuring 2.9 cm in diameter. Common bile duct is normal at 5 mm. Normal pancreatic duct . No evidence for pancreatitis or pancreatic mass. No ascites or adenopathy. Spleen is normal size. IMPRESSION: 1. Normal common bile duct. 2. Cholelithiasis without evidence for acute cholecystitis. 3. Mild hepatic steatosis.
== END 2022-10-10 10:05 | disposition home or self-care (01) ==
PROVIDERS: PCP Family Medicine; Visit Provider Surgery
DX: K80.20 Calculus of gallbladder without cholecystitis without obstruction (principal); K76.0 Fatty (change of) liver, not elsewhere classified
CPT/HCPCS: 74181

== ENCOUNTER 2022-10-17 09:11 | Day surgery (SDC) | payer MEDICARE, SELFPAY ==
[2022-10-16 11:34] VITALS: BMI 43.9
[2022-10-17] VITALS (10 sets, daily range): BP systolic 124–150; BP diastolic 55–98; PULSE 64–88; RESP 12–19; TEMP 36.2–36.6; O2SAT 90–96; BMI 43.9
[2022-10-17] MEDS: sodium chloride 0.9% 1,000 ML 30 ML IV (10:00)
--- NOTE | 2022-10-17 10:27 | P.HPUD_ITS ---
Surgery/Procedure H&P Update DATE OF PROCEDURE: October 17, 2022 DATE H&P PERFORMED: 10/01/22 H&P UPDATE INFORMATION: I have reviewed H&P completed within last 30 days, I have examined patient prior to procedure, No changes to prior documentation and [place] is in [facility] [place] date indicated PLANNED PROCEDURE: Operation Date: 10/17/22 11:00 Proposed Procedures p 81804 lap alvarado K80.20(Not Applicable) - Koko David MD
--- NOTE | 2022-10-17 10:27 | W.PM.OPSUD ---
Surgery/Procedure H&P Update DATE OF PROCEDURE: October 17, 2022 DATE H&P PERFORMED: 10/01/22 H&P UPDATE INFORMATION: I have reviewed H&P completed within last 30 days, I have examined patient prior to procedure, No changes to prior documentation and H&P is in [facility] [place] on date indicated PLANNED PROCEDURE: Operation Date: 10/17/22 11:00 Proposed Procedures p 08096 lap alvarado K80.20(Not Applicable) - Koko David MD
--- NOTE | 2022-10-17 12:17 | ANES.PREANE2 ---
Pre-Anesthetic Assessment Height/Weight: Height 1.63 m Weight 116.12 kg Temp Pulse Resp BP Pulse Ox O2 Del Method 97.1 F L 64 17 140/79 96 Room Air 10/17/22 10:10/17/22 10:10/17/22 10:10/17/22 10:10/17/22 10:10/17/22 10: Operation Date: 10/17/22 11:00 Proposed Procedures p 21901 lap alvarado K80.20(Not Applicable) - Koko David MD Familial anesthetic complications: None Was Beta Henrique taken within 24 hours: N/A Was Clonidine taken within 24 hours: N/A Last intake: Intake Last Liquid Date 10/16/22 Last Liquid Time 22: Last Solid Date 10/16/22 Last Solid Time 22: Social No alcohol and No tobacco Exam alert, oriented x 3, clear to auscultation bilaterally and regular rate & rhythm Airway Mallampati: Class II Dentition: false Pulmonary Sleep Apnea CV/HEM Hypertension Neuropsych Multiple Sclerosis Anesthetic Plan ASA status: 3 Anesthesia: General Risk of > 500 ml blood loss (7ml/kg in children): No Medications/Allergies Home Medications Medication Instructions Recorded Confirmed Last Taken Type mecobalamin (vitamin B12) 1,000 1,000 mcg PO DAILY 10/07/19 10/16/22 1 Day Ago History mcg chewable tablet ~10/15/22 albuterol sulfate 90 mcg/actuation 2 puff inhalation 11/07/20 10/01/22 Unknown History aerosol inhaler bimatoprost 0.01 % eye drops 1 drp ophthalmic (eye) DAILY 05/23/21 10/16/22 1 Day Ago History (Madhuriigan) ~10/15/22 SMO to the right with orthopedic #1 ea 06/08/21 10/01/22 Unknown Rx shoes fluticasone propionate 50 2 spray intranasal BID #16 grams 08/08/21 10/16/22 Unknown Rx mcg/actuation nasal spray,suspension levocetirizine 5 mg tablet See Rx Instructions .Route 04/24/22 10/16/22 1 Day Ago Rx .COMPLEX #90 tabs ~10/15/22 clotrimazole-betamethasone 1 1 applic topical DAILY priscila 05/10/22 10/16/22 Unknown Rx %-0.05 % topical cream infection #45 grams conjugated estrogens 0.625 mg/gram 0.625 mg vaginal .twice weekly #30 05/10/22 10/16/22 Unknown Rx vaginal cream grams hydrocodone 7.5 mg-acetaminophen 1 tab PO Q8H PRN pain 30 days #60 07/04/22 10/01/22 10/16/22 Rx 325 mg tablet tabs Moncada Balance Brace #1 ea 07/24/22 10/01/22 Unknown Rx dimethyl fumarate 240 mg 240 mg PO BID #60 caps 09/24/22 10/16/22 10/16/22 Rx capsule,delayed release (Tecfidera) furosemide 40 mg tablet 40 mg PO DAILY 09/25/22 10/16/22 10/16/22 History ibuprofen 800 mg tablet (IBU) 800 mg PO TID PRN Mild Pain (Scale 09/25/22 10/16/22 Unknown History Score 1-4) lisinopril 20 mg tablet 20 mg PO DAILY 09/25/22 10/16/22 10/16/22 History potassium chloride 10 mEq 10 meq PO .weekly 09/25/22 10/16/22 10/16/22 History tablet,extended release rosuvastatin 40 mg tablet 40 mg PO DAILY 09/25/22 10/16/22 1 Day Ago History ~10/15/22 Shoulder sling #1 ea 10/11/22 10/11/22 Unknown Rx Allergies Allergy/AdvReac Type Severity Reaction Status Date / Time gabapentin Allergy unknown Verified 10/16/22 11:24 PFS Anesthesia Medical History (Updated 10/11/22 @ 15:04 by Renan Clarke MD) DDD (degenerative disc disease) Diarrhea Essential hypertension Multiple sclerosis Right knee pain Torn tendon right arch 2004 Surgical History (Updated 10/01/22 @ 10:21 by Koko David MD) H/O arthroscopy of left knee H/O arthroscopy of left knee H/O section H/O: hysterectomy History of back surgery History of lumbar fusion Hx of total knee arthroplasty Family History Unknown Cancer Sister; ovarian cancer paternal aunt; breast cancer x3 great-paternal aunts; breast cancer Stroke paternal grandmother; stroke x2 maternal aunts; aneurysms resulting in Other CAD (coronary artery disease) Hypertension Denies family history of Diabetes Social History Smoking and tobacco status: never smoked Alcohol intake: current Alcohol intake frequency: holidays/special occasions only Data Anesthesia Cardiac Studies: Sestamibi Stress Test (Cardiology) 06/11/22
[2022-10-17] MEDS: ceFAZolin 2,000 MG in sodium chloride 0.9% (plus) 50 ML 100 MG IV (12:37)
[2022-10-17] MEDS: lidocaine-epi 1% 20 mL INJ INJECTION (15:05)
[2022-10-17] MEDS: BUPivacaine 0.25% INJ 10 mL INJECTION (15:06)
--- NOTE | 2022-10-17 15:19 | P.OP_ITS ---
Operative Report Date of procedure: October 17, 2022 Pre-op diagnosis: Symptomatic cholelithiasis. Post-op diagnosis: Same Procedure done: Laparoscopic cholecystectomy Specimens removed/disposition: Gallbladder Surgeon: Koko David MD; Zion Prather DO. Complications: None Findings: Distended gallbladder with a 3.5 cm stone inside Brief History: This is a 67-year-old female who was referred to my clinic for evaluation for laparoscopic cholecystectomy after being found to have a 3.5 cm stone in ultrasound of the gallbladder. Complete work-up was done, most recent benefits of the procedure was discussed during the preoperative visit. We decided to proceed with laparoscopic cholecystectomy. Procedure: Patient was brought into the OR. Placed in the supine position, general anesthesia was given. Abdomen was prepped and draped in the usual sterile fashion. The abdomen was accessed via supraumbilical incision with an open technique. A Trocar Was Placed and Fixed to the Fascia with 0 Vicryl. Additional 5 Mm Trocars Were Placed in the Epigastrium Right Upper Quadrant and for Right Cal. The Gallbladder Was Retracted Cephalad. Adhesions from Omentum to Gallbladder Were Taken down with Electrocautery. The Peritoneum Overlying the hepatocystic triangle was opened with electrocautery. This peritoneum was noted to be tickened, concerning for chronic inflammation. The opening was carried lateral and medial to the level of the liver edge. Careful blunt dissection with [place] and Endo Kitner was done in order to individualize the cystic duct and artery. I was able to individualize the cystic artery which came in the medial disposition. The dissection of the hepatocystic triangle at the level of the cystic duct was technically complex. Therefore, I guess for intraoperative consultation to my senior business development manager Dr. Prather to assist with the dissection. Dr. Prather was able to perform a safe dissection, obtain critical view of safety and clip and transect the cystic duct and artery. At this point I was able to remove the gallbladder from the liver b ed, hemostasis was verified. No bleeding or bile leak was noted on the liver bed or at the level of the clips. The gallbladder was then removed through the umbilical port site, fascia at the umbilical port site needed to be cut to about 2.5 cm to allow for extraction of the stone. After the gallbladder was removed in the medical ports her fascia was closed with three #0 Vicryl [id number] sutures. We then reinflated the abdomen, evaluated the closure and reinforced the closure with 1 extra 0 Vicryl [id number] suture, this was done with a MarleeRosita under direct visualization. Pneumoperitoneum was evacuated and trocars were removed. Wounds were closed in a standard fashion using 3-0 Vicryl for the subcutaneous tissue and 4 Monocryl for the skin. Dermabond was applied. All instrument counts were correct. The patient was extubated and transferred to the PACU in stable condition.
[2022-10-17] MEDS: HYDROcodone-acetaminophen 5-325 mg Tablet 1 TAB PO (16:19)
--- NOTE | 2022-10-17 16:37 | ANE.PACU2 ---
Inpatient post-anesthesia follow up: Airway intact: Yes Vital signs: Temperature 97.8 F Pulse Rate 74 Respiratory Rate 18 Blood Pressure 130/70 Pulse Oximetry 94 Oxygen Delivery Me thod Room Air Oxygen Flow Rate 6 Fraction of Inspir ed Oxygen Hydration adequate: Yes Nausea and vomiting: No Pain level: 1 Mental status: Baseline
== END 2022-10-17 16:47 | disposition home or self-care (01) ==
PROVIDERS: PCP Family Medicine; Visit Provider Surgery
PROC: 0FT44ZZ Resection of Gallbladder, Percutaneous Endoscopic Approach (ICD-10-PCS; CPT 47562; principal; 2022-10-17 10:50)
DX: K80.10 Calculus of gallbladder with chronic cholecystitis without obstruction (principal); G47.30 Sleep apnea, unspecified; I10 Essential (primary) hypertension; I05.0 Rheumatic mitral stenosis
CPT/HCPCS: 47562; 88304; J0131; J0690; J1100; J1170; J2405; J2704; J2710; J3010; J3490; J7030

== ENCOUNTER → 2022-10-29 08:17 | Outpatient (BNVA) | payer MEDICARE, SELFPAY | PROVIDERS: PCP Family Medicine; Visit Provider Surgery | DX: Z90.49 Acquired absence of other specified parts of digestive tract (principal); Z98.890 Other specified postprocedural states | CPT/HCPCS: 99024 ==

== ENCOUNTER → 2022-11-20 11:54 | Outpatient (BNVA) | payer MEDICARE, SELFPAY | PROVIDERS: PCP Family Medicine; Visit Provider Specialist | DX: G35 Multiple sclerosis (principal); W19.XXXA Unspecified fall, initial encounter; Y92.009 Unspecified place in unspecified non-institutional (private) residence as the place of occurrence of the external cause; R26.81 Unsteadiness on feet | CPT/HCPCS: 99214; 99215 ==

== ENCOUNTER → 2022-11-27 14:12 | Outpatient (BNVA) | payer MEDICARE, SELFPAY | PROVIDERS: PCP Family Medicine; Visit Provider Podiatrist Foot & Ankle Surgery | DX: G35 Multiple sclerosis (principal); L60.3 Nail dystrophy; I73.9 Peripheral vascular disease, unspecified; M21.371 Foot drop, right foot | CPT/HCPCS: 11721 ==

== ENCOUNTER 2022-12-21 10:42 | Outpatient (CLI) | payer MEDICARE, SELFPAY ==
--- NOTE | 2022-12-21 11:00 | MR_ITS ---
WS: [id number] MRI BRAIN WITHOUT CONTRAST HISTORY: G35 - Multiple sclerosis COMPARISON: 10/21/2019 TECHNIQUE: Diffusion imaging, multiplanar T1, T2 and FLAIR imaging obtained. Diffusion imaging is normal. Stable LEFT pericallosal white matter lesions are reidentified. No obvio us progression since the prior examination. No white matter lesions in the cerebellum or the brainste m. No prior infarct. No remote or acute infarcts are volume loss. Ventricles and extra-axial spaces are normal. No inferior displacement of cerebellar tonsils. The sella turcica and pituitary gland are unremarkabl e. On this examination the optic nerves appear symmetric. No enlargement or atrophy. No abnormal sign al. This is not a dedicated orbit MRI. Dural venous sinuses and [place] demonstrate no abnormality on this unenhanced studies. Paranasal sinuses: Clear. Mastoid air cells: Normal. Calvarium and scalp: Intact. IMPRESSION: 1. Normal diffusion imaging. No acute infarct. 2. Stable LEFT pericallosal demyelinating white matter lesions since 07/25/2017. No obvious progressio n of the white matter lesions. No white matter lesions in the cerebellum.
== END 2022-12-21 10:43 | disposition home or self-care (01) ==
PROVIDERS: PCP Family Medicine; Visit Provider Specialist
DX: G35 Multiple sclerosis (principal)
CPT/HCPCS: 70551

== ENCOUNTER 2022-12-21 10:43 | Outpatient (CLI) | payer MEDICARE, SELFPAY ==
--- NOTE | 2022-12-21 11:45 | MR_ITS ---
WS: [id number] MRI CERVICAL SPINE NONCONTRAST HISTORY: G35 - Multiple sclerosis COMPARISON: 10/21/2019 Technique: Multiplanar, multisequence noncontrast imaging of the cervical spine. Very slight straightening of the normal cervical lordosis. Increased T2 signal in the cervical cord at the C4-5 level extends over a length of 1.2 cm. Similar s ignal changes were noted on the prior study from 10/21/2019. No additional signal abnormalities are fartun ntified. This study was performed without IV contrast. Craniocervical junction, C1 and C2 relationship, odontoid process and soft tissues are normal. C2-C3: Normal. C3-C4: Small RIGHT foraminal osteophyte. C4-C5: Mild osteophytic ridging and disc bulging. Small foraminal osteophytes. Mild central and vikash inal stenosis. C5-C6: Mild disc bulging and small RIGHT foraminal osteophyte. Mild central and RIGHT foramen stenosi s. C6-C7: No stenosis identified. C7-T1: Shallow central disc protrusion. No stenosis identified. T2-3: Mild annular disc bulging and small bilateral foraminal osteophytes. No high-grade stenosis. Paravertebral soft tissues are negative. IMPRESSION: 1. Increased T2 signal in the cervical cord at C4-5 extends over a length of 1.2 cm. Similar demyelin ating lesion was noted on 10/21/2019. No new lesions identified. No contrast was given on today's [facility] to evaluate for active demyelination. 2. No high-grade central or foraminal stenosis. 3. Mild central and foraminal stenosis at C4-5. 4. Mild central and RIGHT foraminal stenosis at C5-6.
== END 2022-12-21 10:44 | disposition home or self-care (01) ==
PROVIDERS: PCP Family Medicine; Visit Provider Specialist
DX: G35 Multiple sclerosis (principal); M48.02 Spinal stenosis, cervical region
CPT/HCPCS: 70551; 72141

== ENCOUNTER → 2023-01-02 10:41 | Outpatient (BNVA) | payer MEDICARE, SELFPAY | PROVIDERS: PCP Family Medicine; Visit Provider Nurse Practitioner Family | DX: L82.1 Other seborrheic keratosis (principal); L73.8 Other specified follicular disorders; L57.8 Other skin changes due to chronic exposure to nonionizing radiation; L81.4 Other melanin hyperpigmentation; D69.2 Other nonthrombocytopenic purpura; L57.0 Actinic keratosis; L82.0 Inflamed seborrheic keratosis | CPT/HCPCS: 17000; 17110; 99203 ==

== ENCOUNTER → 2023-03-04 11:37 | Outpatient (BNVA) | payer MEDICARE, SELFPAY | PROVIDERS: PCP Family Medicine; Visit Provider Internal Medicine Cardiovascular Disease | DX: I10 Essential (primary) hypertension (principal); R07.9 Chest pain, unspecified; R94.39 Abnormal result of other cardiovascular function study; F41.9 Anxiety disorder, unspecified; Z90.49 Acquired absence of other specified parts of digestive tract; G35 Multiple sclerosis | CPT/HCPCS: 99213 ==

== ENCOUNTER → 2023-03-06 14:06 | Outpatient (BNVA) | payer MEDICARE, SELFPAY | PROVIDERS: PCP Family Medicine; Visit Provider Podiatrist Foot & Ankle Surgery | DX: G35 Multiple sclerosis (principal); L60.3 Nail dystrophy; I73.9 Peripheral vascular disease, unspecified; M21.371 Foot drop, right foot | CPT/HCPCS: 11721 ==

== ENCOUNTER → 2023-06-24 11:24 | Outpatient (BNVA) | payer MEDICARE, SELFPAY | PROVIDERS: PCP Family Medicine; Visit Provider Podiatrist Foot & Ankle Surgery | DX: G35 Multiple sclerosis (principal); L60.3 Nail dystrophy; I73.9 Peripheral vascular disease, unspecified; M21.371 Foot drop, right foot | CPT/HCPCS: 11721 ==

== ENCOUNTER → 2023-06-27 09:50 | Outpatient (BNVA) | payer MEDICARE, SELFPAY | PROVIDERS: PCP Family Medicine; Visit Provider Family Medicine | DX: Z13.220 Encounter for screening for lipoid disorders (principal); E53.8 Deficiency of other specified B group vitamins; R73.09 Other abnormal glucose; Z51.81 Encounter for therapeutic drug level monitoring; E55.9 Vitamin D deficiency, unspecified; E11.9 Type 2 diabetes mellitus without complications | CPT/HCPCS: 80053; 80061; 82306; 82607; 83036; 85025 ==

== ENCOUNTER → 2023-07-19 12:37 | Outpatient (BNVA) | payer MEDICARE, SELFPAY | PROVIDERS: PCP Family Medicine; Referring Provider Family Medicine; Visit Provider Specialist | DX: G35 Multiple sclerosis (principal) | CPT/HCPCS: 99213; 99214 ==

== ENCOUNTER → 2023-12-31 12:47 | Outpatient (BNVA) | payer MEDICARE, SELFPAY | PROVIDERS: PCP Family Medicine; Visit Provider Internal Medicine Cardiovascular Disease | DX: R07.9 Chest pain, unspecified (principal); I10 Essential (primary) hypertension | CPT/HCPCS: 99214 ==

== ENCOUNTER → 2024-01-01 11:40 | Outpatient (BNVA) | payer MEDICARE, SELFPAY | PROVIDERS: PCP Family Medicine; Visit Provider Family Medicine | DX: Z51.81 Encounter for therapeutic drug level monitoring (principal); E55.9 Vitamin D deficiency, unspecified; Z13.6 Encounter for screening for cardiovascular disorders; Z13.220 Encounter for screening for lipoid disorders | CPT/HCPCS: 80053; 80061; 82306; 85025 ==

== ENCOUNTER → 2024-01-06 09:45 | Outpatient (BNVA) | payer MEDICARE, SELFPAY | PROVIDERS: PCP Family Medicine; Visit Provider Podiatrist Foot & Ankle Surgery | DX: L60.8 Other nail disorders (principal); G35 Multiple sclerosis; L60.3 Nail dystrophy; I73.9 Peripheral vascular disease, unspecified; L85.8 Other specified epidermal thickening; L73.8 Other specified follicular disorders; L82.1 Other seborrheic keratosis; L57.8 Other skin changes due to chronic exposure to nonionizing radiation; L81.4 Other melanin hyperpigmentation; D18.01 Hemangioma of skin and subcutaneous tissue; D69.2 Other nonthrombocytopenic purpura; B07.8 Other viral warts; L53.8 Other specified erythematous conditions; L29.89 Other pruritus; L57.0 Actinic keratosis | CPT/HCPCS: 11721; 17000; 17110; 99213 ==

== ENCOUNTER → 2024-01-28 08:56 | Outpatient (BNVA) | payer MEDICARE, SELFPAY | PROVIDERS: PCP Family Medicine; Visit Provider Nurse Practitioner Family | DX: L91.8 Other hypertrophic disorders of the skin (principal); D36.12 Benign neoplasm of peripheral nerves and autonomic nervous system, upper limb, including shoulder; D22.5 Melanocytic nevi of trunk; L82.1 Other seborrheic keratosis; L57.8 Other skin changes due to chronic exposure to nonionizing radiation; L81.4 Other melanin hyperpigmentation; L57.0 Actinic keratosis | CPT/HCPCS: 17110; 99213 ==

== ENCOUNTER → 2024-02-26 15:07 | Outpatient (BNVA) | payer MEDICARE, SELFPAY | PROVIDERS: PCP Family Medicine; Visit Provider Nurse Practitioner Family | DX: L85.8 Other specified epidermal thickening (principal); L73.8 Other specified follicular disorders; L82.1 Other seborrheic keratosis; L57.8 Other skin changes due to chronic exposure to nonionizing radiation; L81.4 Other melanin hyperpigmentation; D18.01 Hemangioma of skin and subcutaneous tissue; D69.2 Other nonthrombocytopenic purpura; L90.5 Scar conditions and fibrosis of skin; Z80.8 Family history of malignant neoplasm of other organs or systems; B07.8 Other viral warts; L29.89 Other pruritus | CPT/HCPCS: 17110; 99214 ==

== ENCOUNTER → 2024-03-11 11:00 | Outpatient (BNVA) | payer MEDICARE, SELFPAY | PROVIDERS: PCP Family Medicine; Visit Provider Podiatrist Foot & Ankle Surgery | DX: G35 Multiple sclerosis (principal); L60.3 Nail dystrophy; I73.9 Peripheral vascular disease, unspecified | CPT/HCPCS: 11721 ==

== ENCOUNTER → 2024-04-02 15:51 | Outpatient (BNVA) | payer MEDICARE, SELFPAY | PROVIDERS: PCP Family Medicine; Visit Provider Nurse Practitioner Family | DX: B07.8 Other viral warts (principal); L85.8 Other specified epidermal thickening; L73.8 Other specified follicular disorders; L82.1 Other seborrheic keratosis; L57.8 Other skin changes due to chronic exposure to nonionizing radiation; L81.4 Other melanin hyperpigmentation; D18.01 Hemangioma of skin and subcutaneous tissue; D69.2 Other nonthrombocytopenic purpura; L90.5 Scar conditions and fibrosis of skin; Z80.8 Family history of malignant neoplasm of other organs or systems | CPT/HCPCS: 99214 ==

== ENCOUNTER → 2024-04-23 12:26 | Outpatient (BNVA) | payer MEDICARE, SELFPAY | PROVIDERS: PCP Family Medicine; Visit Provider Specialist | DX: G35 Multiple sclerosis (principal) | CPT/HCPCS: 99213 ==

== ENCOUNTER 2024-05-08 13:13 | Outpatient (CLI) | payer MEDICARE, SELFPAY ==
--- NOTE | 2024-05-08 13:18 | XRR_ITS ---
PROCEDURE INFORMATION: Exam: XR Thoracic Spine Exam date and time: 05/08/2024 1:29 PM Age: 69 years old Clinical indication: Pain in thoracic spine; With radiculopathy; Left; Additional info: Thoracic radiculopathy left TECHNIQUE: Imaging protocol: Radiologic exam of the thoracic spine. Views: 3 views. COMPARISON: MR cervical spin wo con* [id number] 12/21/2022 11:52 AM FINDINGS: Bones/joints: There is diffuse osteopenia. There is mild levoscoliosis of the mid to lower thoracic spine. No significant subluxation. No acute fracture is detected. There are postsurgical changes at the thoracolumbar junction with orthopedic hardware in place. The hardware appears intact. There is moderate to marked disc space narrowing with endplate sclerosis and osteophytosis throughout the mid to lower thoracic spine. There are mild degenerative changes involving the upper thoracic spine. Soft tissues: Unremarkable. XR/XR thoracic spine 3V* [id number] IMPRESSION: 1. Diffuse osteopenia. 2. Mild levoscoliosis of the mid to lower thoracic spine. 3. Moderate to severe degenerative disc disease and spondylosis throughout the mid to lower thoracic spine. 4. Postsurgical changes at the thoracolumbar junction.
== END 2024-05-08 13:14 | disposition home or self-care (01) ==
LOC: RAD 13:14
PROVIDERS: PCP Family Medicine; Visit Provider Family Medicine
DX: M54.14 Radiculopathy, thoracic region (principal); M85.88 Other specified disorders of bone density and structure, other site; M41.84 Other forms of scoliosis, thoracic region; M51.34 Other intervertebral disc degeneration, thoracic region; M47.894 Other spondylosis, thoracic region; Z98.890 Other specified postprocedural states; M25.78 Osteophyte, vertebrae
CPT/HCPCS: 72072

== ENCOUNTER → 2024-05-13 13:05 | Outpatient (BNVA) | payer MEDICARE, SELFPAY | PROVIDERS: PCP Family Medicine; Visit Provider Podiatrist Foot & Ankle Surgery | DX: I73.9 Peripheral vascular disease, unspecified (principal); L60.8 Other nail disorders; G35 Multiple sclerosis; L60.3 Nail dystrophy | CPT/HCPCS: 11721 ==

== ENCOUNTER 2024-05-21 14:12 | Outpatient (CLI) | payer MEDICARE, SELFPAY ==
--- NOTE | 2024-05-21 14:30 | CT_ITS ---
WS: [id number] CT ABDOMEN AND PELVIS WITH CONTRAST HISTORY: Left upper and left lower abd pain TECHNIQUE: Imaging performed of the abdomen and pelvis with IV contrast. Single phase imaging of the abdomen. Coronal and sagittal reformats are submitted. All CT scans at [facility] use at least one of these dose optimization techniques: automated exposure control; mA and/or kV adjustment per patient size (includes targeted exams where dose is matched to clinical indication); or iterative reconstruction. IV CONTRAST: Omnipaque 350; 100 mL IV. Oral contrast: Yes. DLP: 1070.28 mGy.cm COMPARISON: None available. Lower thorax: Lung bases are clear. Heart is normal size. No hiatal hernia. Liver/biliary system: Normal size with no intrahepatic dilatation. Gallbladder: Prior cholecystectomy. Pancreas: Normal size pancreas and pancreatic duct. No adjacent inflammation. Spleen: Granulomata. Normal size. Adrenal glands: Normal. Right kidney: Normal. Left kidney: Normal. Aorta: Mild atherosclerosis with no aneurysm. Normal mesenteric arteries. Lymphadenopathy: None. Free fluid: None. GI tract: Normal stomach. No small bowel or colon obstruction. Normal appendix. A few scattered diverticula in the distal colon with no acute diverticulitis. No obstruction or stricture. Abdominal wall: Unremarkable abdominal wall. No hernia. Pelvis: Prior hysterectomy. There is artifact in the pelvis obscuring portions of the soft tissues from patient's RIGHT hip arthroplasty. Bones: Extensive prior lumbar fusion hardware. CT/CT abdomen pelvis w con* [id number] IMPRESSION: 1. No renal obstruction or calcifications. 2. No abnormality in the LEFT upper quadrant to explain the patient's pain. 3. Prior cholecystectomy and hysterectomy. 4. No ascites or adenopathy.
[2024-05-21] MEDS: iohexol 350 mg/mL 500 mL Btl (per mL) PO (15:19)
[2024-05-21] MEDS: iohexol 350 mg/mL 500 mL Btl (per mL) IV (15:34)
== END 2024-05-21 14:13 | disposition home or self-care (01) ==
PROVIDERS: PCP Family Medicine; Visit Provider Family Medicine
DX: R10.9 Unspecified abdominal pain (principal); Z90.49 Acquired absence of other specified parts of digestive tract; Z90.710 Acquired absence of both cervix and uterus; I70.0 Atherosclerosis of aorta; K57.30 Diverticulosis of large intestine without perforation or abscess without bleeding; Z96.89 Presence of other specified functional implants; R93.5 Abnormal findings on diagnostic imaging of other abdominal regions, including retroperitoneum; Z98.1 Arthrodesis status
CPT/HCPCS: 74177

== ENCOUNTER → 2024-06-22 07:16 | Outpatient (BNVA) | payer MEDICARE, SELFPAY | PROVIDERS: PCP Family Medicine; Visit Provider Podiatrist Foot & Ankle Surgery | DX: I73.9 Peripheral vascular disease, unspecified (principal); L60.8 Other nail disorders; G35 Multiple sclerosis; L60.3 Nail dystrophy | CPT/HCPCS: 11721 ==